=== PATIENT | female | born 1950 | race Caucasian/White ===

== ENCOUNTER 2018-05-28 18:04 | Emergency (ER) | payer MEDICARE, OTHER ==
[~2018-05-28] VITALS: Ht 147.3 cm; Wt 82.1 kg
--- NOTE | 2018-05-28 18:24 | ED Chest Pain ---
General Stated Complaint: CHEST PAIN Source: patient, EMS, [facility] records Exam Limitations: no limitations History of Present Illness Date Seen by Provider: May 28, 2018 Time Seen by Provider: 18:11 Initial Comments Patient presents to the ER by private conveyance from [facility] where she was doing rehabilitation 8 days after a lumbar laminectomy. Patient states that just prior to calling EMS she started having some substernal chest pain centered around her just on him and radiating towards her back. It also radiates up her chest and along the midline. She says it is reminiscent of the pain she had prior to receiving her 2 stents in the past. She takes medicines for blood pressure hypercholesterolemia and anxiety disorder. She is on Plavix but no other blood thinners she takes estradiol. She is Lasix 40 mg once a day. She's had a hard time with opiates in the past because they make her have terrible delirium. She does tolerate tramadol. She is a retired nurse. She's feeling no shortness of breath or cough but she is having nausea without chills fever or vomiting. EMS gave her 324 mg of baby aspirin to chew up on route and 1 dose of nitroglycerin which took her pain from a 5 to nothing. This initially arrived in the ER her pain began to resume at about 4-5 out of [address]. She's been up walking around independently with her walker since about day 1 she says and has not been moving in bed. She denies any history of AAA. She sees a ground systems engineer Dr. Sandoval at [facility] in [place], [place] and her primary care doctor is there as well. She states she also feels bloated like she's constipated. She says she is passing gas and having bowel movements. The pt has a Surg Hx of Tubal Lig, Hyst, Appendectomy, Cholecystectomy. Allergies and Home Medications Allergies Coded Allergies: Penicillins (Verified Allergy, Unknown, 05/28/18) Sulfa (Sulfonamide Antibiotics) (Verified Allergy, Unknown, 05/28/18) doxycycline (Verified Allergy, Unknown, 05/28/18) hydrocodone (Verified Allergy, Unknown, 05/28/18) oxycodone (Verified Allergy, Unknown, 05/28/18) prochlorperazine (Verified Allergy, Unknown, 05/28/18) vancomycin (Verified Allergy, Unknown, 05/28/18) Home Medications Acetaminophen 325 Mg Tablet, 650 MG PO Q4H, (Reported) Acetaminophen 500 Mg Tablet, 500 MG PO Q6H PRN for TEMPERATURE, (Reported) Alprazolam 0.5 Mg Tablet, 0.5 MG PO Q12H, (Reported) Aspirin 81 Mg Tablet.dr, 81 MG PO DAILY, (Reported) Atorvastatin Calcium 40 Mg Tablet, 40 MG PO DAILY, (Reported) Carvedilol 12.5 Mg Tablet, 12.5 MG PO BID, (Reported) Clopidogrel Bisulfate 75 Mg Tablet, 75 MG PO DAILY, (Reported) Docusate Sodium 100 Mg Tablet, 100 MG PO BID, (Reported) Duloxetine HCl 60 Mg Capsule.dr, 60 MG PO DAILY, (Reported) Estradiol 1 Mg Tablet, 1 MG PO DAILY, (Reported) Furosemide 40 Mg Tablet, 40 MG PO Q48H, (Reported) Lisinopril 10 Mg Tablet, 10 MG PO DAILY, (Reported) Meclizine HCl 25 Mg Tablet, 25 MG PO DAILY, (Reported) Anderson-3S/Dha/Epa/Fish Oil 1 Each Capsule.dr, 1 EACH PO BID PRN, (Reported) Tramadol HCl 50 Mg Tablet, 50 MG PO Q8H, (Reported) Trazodone HCl 50 Mg Tablet, 50 MG PO DAILY, (Reported) Patient Home Medication List Home Medication List Reviewed: Yes Review of Systems Constitutional: No chills, No diaphoresis EENTM: No Blurred Vision, No Double Vision Respiratory: Denies Cough, Denies Orthopnea, Denies Shortness of Air Cardiovascular: See HPI, Chest Pain; Denies Edema, Denies Irregular Heart Rate , Denies Lightheadedness, Denies Palpitations, Denies Syncope Gastrointestinal: Denies Abdomen Distended, Denies Abdominal Pain; Constipated ; Denies Diarrhea, Denies Difficulty Swallowing; Nausea; Denies Vomiting Genitourinary: Denies Burning, Denies Discharge Musculoskeletal: No back pain, No joint pain Skin: No pruritus, No rash Past Ninxdbq-Ajppki-Qtxloz Hx Patient Social History Alcohol Use: Denies Use Recreational Drug Use: No Smoking Status: Never a Smoker Physical Exam Vital Signs Vital Signs - First Documented 05/28/18 18:22 Temp 100.1 Pulse 73 Resp 16 B/P (MAP) 148/69 (95) Pulse Ox 98 Capillary Refill : Height, Weight, BMI Height: '" Weight: lbs. oz. kg; BMI Method: General Appearance: WD/WN, Mild Distress HEENT: PERRL/EOMI, Normal ENT Inspection, Pharynx Normal, Moist Mucous Membranes Neck: Full Range of Motion, Non Tender, Supple Respiratory: Chest Non Tender, Lungs Clear, Normal Breath Sounds, No Accessory Muscle Use, No Respiratory Distress Cardiovascular: Regular Rate, Rhythm, No Edema, Normal Peripheral Pulses Gastrointestinal: Normal Bowel Sounds, Non Tender, Soft Extremity: Normal Capillary Refill, Normal Inspection, No Pedal Edema Neurologic/Psychiatric: Alert, Oriented x3, No Motor/Sensory Deficits, Normal Mood/Affect Skin: Normal Color, Warm/Dry Progress/Results/Core Measures Results/Orders Lab Results Laboratory Tests Test 05/28/18 18:08 05/28/18 19:52 Range/Units White Blood Count 7.1 4.3-11.0 10^3/uL Red Blood Count 3.06 L 4.35-5.85 10^6/uL Hemoglobin 9.2 L 11.5-16.0 G/DL Hematocrit 28 L 35-52 % Mean Corpuscular Volume 90 80-99 FL Mean Corpuscular Hemoglobin 30 25-34 PG Mean Corpuscular Hemoglobin Concent 34 32-36 G/DL Red Cell Distribution Width 13.9 10.0-14.5 % Platelet Count 349 130-400 10^3/uL Mean Platelet Volume 10.2 7.4-10.4 FL Neutrophils (%) (Auto) 62 42-75 % Lymphocytes (%) (Auto) 26 12-44 % Monocytes (%) (Auto) 10 0-12 % Eosinophils (%) (Auto) 3 0-10 % Basophils (%) (Auto) 0 0-10 % Neutrophils # (Auto) 4.3 1.8-7.8 X 10^3 Lymphocytes # (Auto) 1.8 1.0-4.0 X 10^3 Monocytes # (Auto) 0.7 0.0-1.0 X 10^3 Eosinophils # (Auto) 0.2 0.0-0.3 10^3/uL Basophils # (Auto) 0.0 0.0-0.1 10^3/uL Sodium Level 139 135-145 MMOL/L Potassium Level 4.1 3.6-5.0 MMOL/L Chloride Level 109 H 98-107 MMOL/L Carbon Dioxide Level 23 21-32 MMOL/L Anion Gap 7 5-14 MMOL/L Blood Urea Nitrogen 11 7-18 MG/DL Creatinine 0.63 0.60-1.30 MG/DL Estimat Glomerular Filtration Rate > 60 BUN/Creatinine Ratio 17 Glucose Level 97 70-105 MG/DL Calcium Level 10.1 8.5-10.1 MG/DL Corrected Calcium 10.7 H 8.5-10.1 MG/DL Magnesium Level 2.0 1.8-2.4 MG/DL Total Bilirubin 0.3 0.1-1.0 MG/DL Aspartate Amino Transf (AST/SGOT) 27 5-34 U/L Alanine Aminotransferase (ALT/SGPT) 60 H 0-55 U/L Alkaline Phosphatase 157 H 40-136 U/L Myoglobin 46.1 10.0-92.0 NG/ML Troponin I < 0.30 <0.30 NG/ML Total Protein 6.3 L 6.4-8.2 GM/DL Albumin 3.3 3.2-4.5 GM/DL Lipase 4 L 8-78 U/L Prothrombin Time 13.8 12.2-14.7 SEC INR Comment 1.1 0.8-1.4 Activated Partial Thromboplast Time 28 24-35 SEC D-Dimer 2.17 H 0.00-0.49 UG/ML My Orders Orders - ROSELYN KEY Cbc With Automated Diff (05/28/18 18:16) Magnesium (05/28/18 18:16) Chest 1 View, Ap/Pa Only (05/28/18 18:16) Ekg Tracing (05/28/18 18:16) Cardiac Profile 1 (05/28/18 18:16) Comprehensive Metabolic Panel (05/28/18 18:16) Myoglobin Serum (05/28/18 18:16) Protime With Inr (05/28/18 18:16) Partial Thromboplastin Time (05/28/18 18:16) O2 (05/28/18 18:16) Monitor-Rhythm Ecg Trace Only (05/28/18 18:16) Nitroglycerin 0.4 Mg Btl 25's (Nitrostat (05/28/18 18:30) Saline Lock/Iv-Start (05/28/18 18:16) Lipase (05/28/18 18:16) Fibrin Degradation Products (05/28/18 18:16) Ondansetron Injection (Zofran Injectio (05/28/18 18:30) Abdomen/Kub 1view (05/28/18 18:27) Ct Angio Chest W (05/28/18 20:39) Saline Lock/Iv-Start (05/28/18 20:39) Ns Iv 1000 Ml (Sodium Chloride 0.9%) (05/28/18 20:39) Iohexol Injection (Omnipaque 350 Mg/Ml 1 (05/28/18 21:00) Ns (Ivpb) (Sodium Chloride 0.9%) (05/28/18 21:00) Medications Given in ED Current Medications Medications Dose Ordered Sig/Bc Route Start Time Stop Time Status Last Admin Dose Admin Iohexol 125 ml ONCE ONCE IV 05/28/18 21:00 05/28/18 21:01 DC 05/28/18 21:41 125 ML Nitroglycerin 0.4 mg UD PRN SL 05/28/18 18:30 05/28/18 23:53 DC 05/28/18 18:40 0.4 MG Ondansetron HCl 4 mg ONCE ONCE IVP 05/28/18 18:30 05/28/18 18:31 DC 05/28/18 18:49 4 MG Sodium Chloride 250 ml ONCE ONCE IV 05/28/18 21:00 05/28/18 21:01 DC 05/28/18 21:41 80 ML Vital Signs/I&O 05/28/18 18:22 Temp 100.1 Pulse 73 Resp 16 B/P (MAP) 148/69 (95) Pulse Ox 98 Progress Progress Note #1: Time: 18:25 Progress Note The patient's on Plavix not a blood thinner but she's been up moving around she says the past week. She is not having any shortness breath or coughed so DVT is not clinically present and a PE is very unlikely. We will compare her d-dimer to an age adjusted d-dimer score. 8 days out from surgery however it is Possible she is still going to have an elevated d-dimer. No clinical history of AAA however her pain is radiating to her back. Most concerning would be a cardiogenic source of pain and the EKG initially is unremarkable we'll see what her labs show and consult cardiology as appropriate. Since her pain is come back to going to give her some nitroglycerin. Progress Note #2: Time: 19:39 Progress Note After 1 dose of nitroglycerin in the ER her pain went back down to 0. With 1 dose of Zofran IV her nausea is gone. Progress Note #3: Time: 20:40 Progress Note Patient's pain is still gone. Nausea is gone. We discussed the pros and cons of doing a CT angiogram of her chest and she is agreed to do it. We are going to give her a liter bolus of fluids and put her on some fluids overnight. She has expressed her desire to be heart catheter by her ground systems engineer if possible and after we get the CT angiogram of her chest done we will discuss transferring her to her home ground systems engineer [address] since she is adamant against having a heart catheter done by local cardiology. It would probably be of more benefit to the patient to have her heart catheter done by the ground systems engineer who knows her. Progress Note #4: Time: 22:14 Progress Note While undergoing her CT angiogram she received a large bolus of the IV contrast in her left upper arm secondary to IV infiltration. We have used warm blankets and now on ice pack along with Coban wrap. Initial ECG Impression Date: May 28, 2018 Initial ECG Impression Time: 18:11 Initial ECG Rate: 75 Initial ECG Rhythm: Normal Sinus Initial ECG Intervals: Normal Initial ECG Impression: Normal Initial ECG Comparisson: No Previous ECG Available Comment No ST elevation or depression. Diagnostic Imaging Diagonstic Imaging: Xray Plain Films/CT/US/NM/MRI: chest Comments VIA [facility]. [place], [place] NAME: MICHELET PLATT [facility] REC#: [id number] PT STATUS: REG ER : 1950 PHYSICIAN: ROSELYN KEY MD ADMIT DATE: 05/28/18/ER Draft Date of Exam:05/28/18 CHEST 1 VIEW, AP/PA ONLY EXAMINATION: Portable erect AP chest at 06:27 p.m. INDICATION: Chest pain. FINDINGS: There are no prior studies available for comparison. The heart is mildly enlarged. The central pulmonary vascularity is somewhat prominent, but there is no evidence for overt failure or pneumonia. There is no pleural effusion identified either. The mediastinum is not widened. The osseous structures are intact. There are bilateral total shoulder prostheses in place. IMPRESSION: There is mild cardiomegaly, but there is no evidence for an acute cardiopulmonary abnormality. Dictated on workstation # [id number] Dict: 05/28/181841 Trans: 05/28/181849 [id number] Interpreted by: REDDY MCCORMICK MD Electronically signed by: Reviewed: Reviewed by Me Diagonstic Imaging: Xray Plain Films/CT/US/NM/MRI: abdomen (1v kub) Comments VIA [facility]. [place], [place] NAME: MICHELET PLATT [facility] REC#: [id number] PT STATUS: REG ER : 1950 PHYSICIAN: ROSELYN KEY MD ADMIT DATE: 05/28/18/ER Draft Date of Exam:05/28/18 ABDOMEN/KUB 1VIEW EXAMINATION: Supine abdomen at 06:32 p.m. INDICATION: Back pain. FINDINGS: A single supine view of the abdomen and pelvis was obtained. There are no prior studies available for comparison. There is a midline row of skin javier and there are bilateral pedicle screws in place at L4 and L5. There is degenerative disc and bony disease throughout the lumbar spine, but there is no evidence for an acute bony abnormality. There does seem to be a long-standing compression deformity of T11 and T12. There is a 1 cm calcification overlying the inferior pole of the right kidney. This may be intrarenal. If further study is desired, then CT will be recommended. There is some gas in both the large and small bowel in a nonspecific fashion. There is no evidence for bowel obstruction. There is no mass or organomegaly appreciated. IMPRESSION: 1. The bowel gas pattern is nonspecific. There is no acute abnormality evident. 2. There are postsurgical changes consistent with a fusion of L4 and L5. 3. There is a question of nephrolithiasis on the right. Recommendations as above. Dictated on workstation # [id number] Dict: 05/28/181845 Trans: 05/28/181852 [id number] Interpreted by: REDDY MCCORMICK MD Electronically signed by: Reviewed: Reviewed by Me Diagonstic Imaging: CT (angio) Plain Films/CT/US/NM/MRI: chest Comments VIA [facility]. [place], [place] NAME: MICHELET PLATT [facility] REC#: [id number] PT STATUS: REG ER : 1950 PHYSICIAN: ROSELYN KEY MD ADMIT DATE: 05/28/18/ER Draft Date of Exam:05/28/18 CT ANGIO CHEST W PROCEDURE: CT angiography of the chest with contrast. TECHNIQUE: Multiple contiguous axial images were obtained through the chest after uneventful bolus administration of intravenous contrast. Reconstructed CTA MIP acquisitions were also performed. INDICATION: Chest pain radiating to the back. COMPARISON: Chest x-ray from the same day. FINDINGS: The aorta demonstrates mild atherosclerosis without dissection or aneurysm seen. The aortic arch branch vessels are unremarkable. The pulmonary arteries are diagnostic to the segmental level. No filling defects are seen to suggest pulmonary embolus. The heart is upper normal in size. There is no pericardial effusion. No mediastinal adenopathy is seen. Postsurgical changes are seen in the shoulders, bilaterally. No focal consolidation is seen. There is minimal atelectasis at the dependent lungs, bilaterally. No pleural effusion or pneumothorax is seen. No central endobronchial lesions are seen. There are multilevel degenerative changes in the spine. No acute fracture is seen on this large [id number]. A few vertebral bodies are likely due to Schmorl's nodes. The imaged portions of the upper abdomen demonstrate no acute abnormality. IMPRESSION: 1. No aortic aneurysm or dissection. There is mild atherosclerosis. 2. No pulmonary embolus. 3. Minimal dependent atelectasis. 4. Degenerative changes in the thoracic spine. Dictated on workstation # [id number] Dict: 05/28/182144 Trans: 05/28/182156 [facility] [id number] Interpreted by: GRISEL CUNNINGHAM MD Electronically signed by: Reviewed: Reviewed by Me Consults : Consulting Physician: Tahira RODRIGUEZ MD Consults Notes He feels with the patient's risk factor she should be admitted and have a heart catheter done in the morning. Departure Impression Primary Impression: Chest pain Qualified Codes: R07.9 - Chest pain, unspecified Additional Impression: IV infiltration Qualified Codes: T80.1XXA - Vascular complications following infusion, transfusion and therapeutic injection, initial encounter Disposition: 02 XFER SHT-TRM HOSP Condition: Stable Transfer Time Spoke to Accepting Phy: 22:10 Transfer Progress Notes [facility] Triage: Ervin Gutierrez [place]. Dr Robi Ramos Cards on for Dr Champion Transfer Time: 23:55 Transfer Facility: [place], [place]. Method of Transfer: EMS Departure-Patient Inst. Referrals: UNKNOWN (PCP) Primary Care Physician Copy Copies To 1: Tahira RODRIGUEZ MD, TITUS J May 28, 2018 18:24
[2018-05-28 18:25] LABS: BASOPHILS % (AUTO) 0 % (0-10); EOSINOPHILS # (AUTO) 0.2 10^3/uL (0.0-0.3); EOSINOPHILS % (AUTO) 3 % (0-10); HEMATOCRIT 28 % (35-52); HEMOGLOBIN 9.2 G/DL (11.5-16.0); LYMPHOCYTES # (AUTO) 1.8 X 10^3 (1.0-4.0); LYMPHOCYTES % (AUTO) 26 % (12-44); MEAN CORPUSCULAR HEMOGLOBIN 30 PG (25-34); MEAN CORPUSCULAR HGB CONC 34 G/DL (32-36); MEAN CORPUSCULAR VOLUME 90 FL (80-99); MEAN PLATELET VOLUME 10.2 FL (7.4-10.4); MONOCYTES # (AUTO) 0.7 X 10^3 (0.0-1.0); MONOCYTES % (AUTO) 10 % (0-12); NEUTROPHILS # (AUTO) 4.3 X 10^3 (1.8-7.8); NEUTROPHILS % (AUTO) 62 % (42-75); PLATELET COUNT 349 10^3/uL (130-400); RED BLOOD COUNT 3.06 10^6/uL (4.35-5.85); RED CELL DISTRIBUTION WIDTH 13.9 % (10.0-14.5); WHITE BLOOD COUNT 7.1 10^3/uL (4.3-11.0)
[2018-05-28] MEDS ORDERED: NITROGLYCERIN 0.4 MG SL TABS BTL 25'S SL PRN (18:30)
[2018-05-28] MEDS ORDERED: ONDANSETRON 4 MG/2 ML (SDV) Z0FRAN IVP ONE (18:30)
[2018-05-28 18:37] LABS: ALANINE AMINOTRANSFERASE 60 U/L (0-55); ALBUMIN 3.3 GM/DL (3.2-4.5); ALKALINE PHOSPHATASE 157 U/L (40-136); BILIRUBIN,TOTAL 0.3 MG/DL (0.1-1.0); BUN/CREATININE RATIO 17; CALCIUM 10.1 MG/DL (8.5-10.1); CARBON DIOXIDE 23 MMOL/L (21-32); CHLORIDE 109 MMOL/L (98-107); CREATININE SERUM 0.63 MG/DL (0.60-1.30); GFR ESTIMATED > 60; GLUCOSE 97 MG/DL (70-105); LIPASE 4 U/L (8-78); POTASSIUM 4.1 MMOL/L (3.6-5.0); SODIUM 139 MMOL/L (135-145); TOTAL PROTEIN 6.3 GM/DL (6.4-8.2)
[2018-05-28] MEDS ORDERED: ACET325T38 PO (18:37)
[2018-05-28 18:43] LABS: MYOGLOBIN SERUM 46.1 NG/ML (10.0-92.0)
[2018-05-28] MEDS ORDERED: CARV12.53 PO (18:49)
[2018-05-28] MEDS ORDERED: DULO60CA58 PO (18:49)
[2018-05-28] MEDS ORDERED: TRAZ-189 PO (18:49)
[2018-05-28] MEDS ORDERED: MECL-106 PO (18:49)
[2018-05-28] MEDS ORDERED: ESTR1TAB27 PO (18:49)
[2018-05-28] MEDS ORDERED: CLOP75TA28 PO (18:49)
[2018-05-28] MEDS ORDERED: ASPI-983 PO (18:49)
[2018-05-28] MEDS ORDERED: TRAM50TA2 PO (18:49)
[2018-05-28] MEDS ORDERED: DOCU100T2 PO (18:49)
[2018-05-28] MEDS ORDERED: OMEP20TA7 PO (18:49)
[2018-05-28] MEDS ORDERED: ALPR0.5T7 PO (18:49)
[2018-05-28] MEDS ORDERED: ATOR40TA70 PO (18:49)
[2018-05-28] MEDS ORDERED: FURO-124 PO (18:49)
[2018-05-28] MEDS ORDERED: MAGN250T13 PO (18:49)
[2018-05-28] MEDS ORDERED: OMEG-25 PO (18:49)
[2018-05-28] MEDS ORDERED: LISI10TA2 PO (18:49)
[2018-05-28] MEDS ORDERED: ACET-93 PO (18:49)
--- NOTE | 2018-05-28 18:50 | Diagnostic Imaging Report ---
EXAMINATION: Portable erect AP chest at 06:27 p.m. INDICATION: Chest pain. FINDINGS: There are no prior studies available for comparison. The heart is mildly enlarged. The central pulmonary vascularity is somewhat prominent, but there is no evidence for overt failure or pneumonia. There is no pleural effusion identified either. The mediastinum is not widened. The osseous structures are intact. There are bilateral total shoulder prostheses in place. IMPRESSION: There is mild cardiomegaly, but there is no evidence for an acute cardiopulmonary abnormality. Dictated by: Dictated on workstation # [id number]
--- NOTE | 2018-05-28 18:54 | Diagnostic Imaging Report ---
EXAMINATION: Supine abdomen at 06:32 p.m. INDICATION: Back pain. FINDINGS: A single supine view of the abdomen and pelvis was obtained. There are no prior studies available for comparison. There is a midline row of skin javier and there are bilateral pedicle screws in place at L4 and L5. There is degenerative disc and bony disease throughout the lumbar spine, but there is no evidence for an acute bony abnormality. There does seem to be a long-standing compression deformity of T11 and T12. There is a 1 cm calcification overlying the inferior pole of the right kidney. This may be intrarenal. If further study is desired, then CT will be recommended. There is some gas in both the large and small bowel in a nonspecific fashion. There is no evidence for bowel obstruction. There is no mass or organomegaly appreciated. IMPRESSION: 1. The bowel gas pattern is nonspecific. There is no acute abnormality evident. 2. There are postsurgical changes consistent with a fusion of L4 and L5. 3. There is a question of nephrolithiasis on the right. Recommendations as above. Dictated by: Dictated on workstation # [id number]
[2018-05-28 20:19] LABS: INR 1.1 (0.8-1.4); PROTHROMBIN TIME PATIENT 13.8 SEC (12.2-14.7)
[2018-05-28] MEDS ORDERED: NS IV 1000 ML 1,000 ML IV SCH (20:39)
[2018-05-28] MEDS ORDERED: IOHEXOL 350 MG/ML 150 ML (OMNIPAQUE 350) VIAL IV ONE (21:00)
[2018-05-28] MEDS ORDERED: NS 250 ML (IVPB) BAG IV ONE (21:00)
--- NOTE | 2018-05-28 21:58 | Diagnostic Imaging Report ---
PROCEDURE: CT angiography of the chest with contrast. TECHNIQUE: Multiple contiguous axial images were obtained through the chest after uneventful bolus administration of intravenous contrast. Reconstructed CTA MIP acquisitions were also performed. INDICATION: Chest pain radiating to the back. COMPARISON: Chest x-ray from the same day. FINDINGS: The aorta demonstrates mild atherosclerosis without dissection or aneurysm seen. The aortic arch branch vessels are unremarkable. The pulmonary arteries are diagnostic to the segmental level. No filling defects are seen to suggest pulmonary embolus. The heart is upper normal in size. There is no pericardial effusion. No mediastinal adenopathy is seen. Postsurgical changes are seen in the shoulders, bilaterally. No focal consolidation is seen. There is minimal atelectasis at the dependent lungs, bilaterally. No pleural effusion or pneumothorax is seen. No central endobronchial lesions are seen. There are multilevel degenerative changes in the spine. No acute fracture is seen on this large [id number]. The gas seen in a few vertebral bodies are likely due to Schmorl's nodes. The imaged portions of the upper abdomen demonstrate no acute abnormality. IMPRESSION: 1. No aortic aneurysm or dissection. There is mild atherosclerosis. 2. No pulmonary embolus. 3. Minimal dependent atelectasis. 4. Degenerative changes in the thoracic spine. Dictated by: Dictated on workstation # [id number]
[2018-05-28 23:53] VITALS: BP 163/93
== END 2018-05-28 23:53 | disposition short-term general hospital (02) ==
LOC: ER 18:06
DX: T80.1XXA Vascular complications following infusion, transfusion and therapeutic injection, initial encounter (principal); R07.2 Precordial pain; I10 Essential (primary) hypertension; E78.00 Pure hypercholesterolemia, unspecified; F41.9 Anxiety disorder, unspecified; Z98.890 Other specified postprocedural states; Z95.5 Presence of coronary angioplasty implant and graft; Z79.02 Long term (current) use of antithrombotics/antiplatelets; Z98.51 Tubal ligation status; Z90.49 Acquired absence of other specified parts of digestive tract; Z88.0 Allergy status to penicillin; Z88.2 Allergy status to sulfonamides; Z88.1 Allergy status to other antibiotic agents; Z88.5 Allergy status to narcotic agent; Z79.82 Long term (current) use of aspirin
CPT/HCPCS: 36415; 71045; 71275; 74018; 80053; 83690; 83735; 83874; 84484; 85025; 85379; 85610; 85730; 93005; 93041; 96374